=== PATIENT | female | born 1990 | race Caucasian/White ===

== ENCOUNTER 2016-08-31 22:29 | Emergency (ER) | payer BC ==
[~2016-08-31 22:29] MED LIST: BUPROPION XL300 M1 PO; CLONAZEPAM0.5 M2 PO; IMPLANON; MOTRIN800 MG PO; NAUSEA MED; PAROXETINE ER12.5 MG PO; PRENATAL1 EACH PO; PROVENTIL17 GM IH; TYLENOL ARTHRI650 M1 PO; VYVANSE30 M1 PO
[2016-09-01] MEDS ORDERED: VALIUM5 M1 PO (00:19)
[2016-09-01] MEDS ORDERED: REVIA50 M1 PO (00:20)
[2016-09-01] MEDS ORDERED: ZOFRAN4 M2 PO (00:23)
[2016-09-01] MEDS ORDERED: TRINTELLIX PO (00:23)
[2016-09-01 00:51] LABS: BASO % 0.5 % (0-2); EOS % 4.1 % (0-7); EOSINOPHIL ABSOLUTE COUNT 0.3 tho/cmm (0.0-0.7); HCT-HEMATOCRIT 35.5 % (34.0-49.0); HGB-HEMOGLOBIN 12.3 gm/dl (12.0-15.5); IMMATURE GRANULOCYTES ABSOLUTE 0.01 tho/cmm (0-0.03); IMMATURE GRANULOCYTES PERCENT 0.1 % (0-0.3); LYMPH % 35.4 % (20-45); LYMPH ABSOLUTE COUNT 2.6 tho/cmm (0.8-4.5); MCH (MEAN CORPUSCULAR HGB) 29.6 pg (28.0-32.0); MCHC MEAN CORPUSCULAR HGB CONC 34.6 % (32.0-36.0); MCV (MEAN CELL VOLUME) 85.3 fl (82.0-96.0); MEAN PLATELET VOLUME 9.6 cmc (9.4-12.4); MONO % 10.4 % (0-12); MONOCYTE ABSOLUTE COUNT 0.8 tho/cmm (0.0-1.2); NEUTROPHIL ABSOLUTE COUNT 3.7 tho/cmm (1.6-8.0); NEUTROPHIL-AUTOMATED 3.7 tho/cmm (1.6-8.0); NEUTROPHILS % 49.5 % (40-80); PLATELET COUNT 273 tho/cmm (150-450); RED BLOOD COUNT 4.16 mil/cmm (4.00-5.20); RED CELL DISTRIBUTION WIDTH 12.4 % (12.4-16.4); WHITE BLOOD COUNT 7.4 tho/cmm (4.0-10.0)
[2016-09-01 01:03] LABS: PREGNANCY-SERUM NEGATIVE (NEGATIVE)
[2016-09-01 01:07] LABS: ALB/GLOB RATIO 1.2 (0.8-2.0); ALBUMIN 3.4 g/dl (3.5-5.0); ALKALINE PHOSPHATASE 52 U/L (33-138); ALT/SGPT 18 U/L (12-78); ANION GAP 11 mmol/L (0-20); AST/SGOT 13 U/L (10-40); BILIRUBIN,TOTAL 0.3 mg/dl (0-1.5); BLOOD UREA NITROGEN 10 mg/dl (6-24); CALCIUM 8.4 mg/dl (8.5-10.5); CARBON DIOXIDE-VENOUS 25 mmol/L (22-32); CHLORIDE 111 mmol/l (96-110); GLUCOSE 102 mg/dL (70-110); LIPASE 124 U/L (73-393); POTASSIUM 3.3 mmol/L (3.7-5.1); SODIUM 144 mmol/L (135-145); eGFR VALUE FOR BLACK >90 mL/Min
== END 2016-09-01 03:14 ==
LOC: EDMED 22:29
PROVIDERS: Emergency Medicine
DX: E86.0 Dehydration (principal); R11.2 Nausea with vomiting, unspecified; R63.0 Anorexia; F41.9 Anxiety disorder, unspecified; F32.9 Major depressive disorder, single episode, unspecified; Z79.899 Other long term (current) drug therapy
CPT/HCPCS: J2405; J7030